=== PATIENT | female | born 1950 | race Caucasian/White ===

== ENCOUNTER 2017-04-13 11:15 | Outpatient (CLI) | payer MEDICARE, MEDICAID ==
--- OUTSIDE RECORDS SUMMARY | 2017-04-13 11:18 | XMS | Clinical Summary ---
:1950 Author Organization [facility] Address [address] [place] [address] Phone Care Team Providers Name Role Phone , Primary Care Provider Unavailable Allergies Not on File Current Medications Not on file Active Problems Not on file Social History Tobacco Use Types Packs/Day Years Used Date Never Assessed Sex Assigned at Date Recorded Not on file Last Filed Vital Signs Not on file Plan of Treatment Not on file Results Not on filefrom Last 3 Months
--- NOTE | 2017-04-13 14:38 | ULT ---
RIGHT BREAST ULTRASOUND BILATERAL DIAGNOSTIC MAMMOGRAM: Date: 04/13/17 COMPARISON: 12/24/14. HISTORY: Palpable mass in the right breast. Patient reports trauma to the right breast after being kicked by a mule. Patient had multiple hematomas drained in the past. FINDINGS: Bilateral MLO, ML, and CC views of the breast, as well as spot magnification views of the right leatha st in the MLO and CC projections were performed. Scattered fibroglandular breast tissue is seen. Umang ign-appearing calcifications are seen in both breasts. Beneath the palpable marker in the right leatha st there are multiple well circumscribed lucent lesions which represent oil cysts. No suspicious mas s is seen beneath the marker siting the area of palpable abnormality. Interpretation of this mammogram was performed with the assistance of computer-aided detection. Targeted ultrasound of the right breast shows a well circumscribed hypoechoic to anechoic lesion joaquim suring 4.0 mm in size without shadowing. This demonstrates increased through-transmission and likely corresponds to the larger of the oil cysts. No suspicious shadowing is seen in the right breast. IMPRESSION: BIRADS Category 2 - benign findings. Annual screening mammography is recommended. POS: [facility]
== END 2017-04-13 11:16 | disposition home or self-care (01) ==
LOC: MAMMO 11:15
PROVIDERS: ATTEND Family Medicine
DX: N63 Unspecified lump in breast (principal)
CPT/HCPCS: 76642; G0204; 77066

== ENCOUNTER 2018-04-12 09:05 | Day surgery (SDC) | payer MEDICARE, MEDICAID ==
[2018-04-11 11:26] VITALS: BMI 18.3
--- NOTE | 2018-04-12 01:16 | HP ---
DATE OF ADMISSION: 04/12/2018 SHORT-STAY HISTORY AND PHYSICAL HISTORY OF PRESENT ILLNESS: This is a 67-year-old female with chronic diarrhea. The patie nt has diarrhea off and on over the last several years. The stools are watery and she has diarrhea b oth during the day and nighttime. She has no fever, no night sweats. Her weight has been down by 29 pounds. She was hospitalized in [place] in 2012 because of above reason and had a colonoscopy th at was negative. There is mention of colonic ulceration and colitis. She . Her symptoms did n ot resolve. The patient comes for a colonoscopy because of chronic diarrhea and weight loss. ALLERGIES: HMG-COA REDUCTASE INHIBITORS. SOCIAL HISTORY: The patient is a smoker. No history of alcohol intake. MEDICAL ILLNESSES: 1. Chronic diarrhea. 2. Hypertension. 3. Depression. 4. Chronic anxiety. 5. Coronary artery disease, status post stent placement. 6. Hyperlipidemia. 7. Colon polyp. 8. IBS. 9. Chronic acid reflux. 10. Peripheral vascular disease. 11. Chronic lung disease. 12. Hysterectomy. 13. Cholecystectomy. 14. Rotator cuff repair. PHYSICAL EXAMINATION: VITAL SIGNS: Her weight is 101 pounds. Her pulse is 74, blood pressure 110/76. HEENT: Conjunctivae clear. CARDIOVASCULAR SYSTEM: First and second heart sounds normal. LUNGS: Clear to auscultation. ABDOMEN: Soft to palpate. No organomegaly. No tenderness. No masses. ADMITTING DIAGNOSES: Chronic diarrhea, weight loss. PLAN: Colonoscopy.
--- NOTE | 2018-04-12 11:16 | OP ---
DATE OF PROCEDURE: 04/12/2018 OPERATIVE PROCEDURE: Colonoscopy with biopsy. PREOPERATIVE DIAGNOSES: A 67-year-old female with diarrhea, history of weight loss. The p atient had a colonoscopy done out of town and was told to have colitis on the right colon. The patie nt's diarrhea persists. She underwent colonoscopy. POSTOPERATIVE DIAGNOSES: 1. Occasional sigmoid diverticular disease. 2. No colitis seen as the mucosa appears normal. PROCEDURE IN DETAIL: The patient was placed on her left lateral position and was given sedation by A nesthesia Department. A rectal exam was done before the scope was advanced into the rectum. No lesi ons were felt on rectal exam. A Pentax video colonoscope was introduced into the rectum and advanced all the way into the cecum. Although the patient has history of colitis, in the endoscopy, the muco sa appeared normal. There was no colitis seen. The appendical opening, ileocecal valve, cecum, well visualized. No pathology seen. The ascending colon, mucosa appears normal with normal vascular pat tern. The hepatic flexure, transverse colon, splenic flexure, descending colon, no pathology seen. The sigmoid colon showed mild diverticular disease. Random biopsies obtained of the ascending colon, transverse colon, sigmoid colon, to rule out microscopic colitis. The rectum showed no pathology. DISCHARGE PLANNING: This is a 67-year-old female with chronic diarrhea, weight loss, etc. She had a colonoscopy, which revealed no colitis. Random biopsies obtained of the ascending colon, transverse colon, and sigmoid colon, to rule out microscopic colitis. DISCHARGE RECOMMENDATIONS: 1. The patient was advised to call me if she developed abdominal pain, hematochezia. 2. May try Metamucil once a day. 3. Await colonic biopsies before making further recommendations.
[2018-04-12] MEDS ORDERED: PROPOFOL 200 MG/20 ML VIAL ONE (15:09)
== END 2018-04-12 11:45 | disposition home or self-care (01) ==
LOC: SDC 09:05
PROVIDERS: ATTEND Internal Medicine Gastroenterology
PROC: 0DBK8ZX Excision of Ascending Colon, Via Natural or Artificial Opening Endoscopic, Diagnostic (ICD-10-PCS; principal; 2018-04-12)
PROC: 0DBL8ZX Excision of Transverse Colon, Via Natural or Artificial Opening Endoscopic, Diagnostic (ICD-10-PCS; 2018-04-12)
PROC: 0DBN8ZX Excision of Sigmoid Colon, Via Natural or Artificial Opening Endoscopic, Diagnostic (ICD-10-PCS; 2018-04-12)
DX: K57.30 Diverticulosis of large intestine without perforation or abscess without bleeding (principal); K58.0 Irritable bowel syndrome with diarrhea; F17.210 Nicotine dependence, cigarettes, uncomplicated; I10 Essential (primary) hypertension; F32.9 Major depressive disorder, single episode, unspecified; F41.9 Anxiety disorder, unspecified; I25.10 Atherosclerotic heart disease of native coronary artery without angina pectoris; E78.5 Hyperlipidemia, unspecified; Z79.82 Long term (current) use of aspirin; Z79.02 Long term (current) use of antithrombotics/antiplatelets; Z79.899 Other long term (current) drug therapy; Z88.8 Allergy status to other drugs, medicaments and biological substances; Z95.5 Presence of coronary angioplasty implant and graft
CPT/HCPCS: 88305; J2704

== ENCOUNTER 2018-05-06 06:10 | Day surgery (SDC) | payer MEDICARE, MEDICAID ==
--- NOTE | 2018-05-05 01:35 | HP ---
SHORT STAY HISTORY AND PHYSICAL DATE OF ADMISSION: 05/06/2018 HISTORY OF PRESENT ILLNESS: This is a 67-year-old female with a history of chronic diarrhea, weight loss. The patient has had the symptoms for a while. The patient had EGD and colonoscopy which were negative for any pathology. The patient comes in with abdominal pain and dyspepsia. for an EGD. ALLERGIES: STATINS. MEDICAL ILLNESSES: 1. Chronic diarrhea. 2. Weight loss. 3. Depression. 4. IBS. 5. Chronic obstructive pulmonary disease. 6. Peripheral vascular disease. 7. Depression. 8. Anxiety. PHYSICAL EXAMINATION: VITAL SIGNS: Pulse is 70, blood pressure 110/70. HEENT: Conjunctivae clear. CARDIOVASCULAR SYSTEM: First and second heart sounds normal. LUNGS: Clear to auscultation. ABDOMEN: Soft to palpate. No organomegaly. Abdomen is tender over the epigastric area and right upper quadrant. There is no rebound or guarding. CLINICAL IMPRESSION: Abdominal pain and weight loss. [facility]AN[facility]
[2018-05-05 11:26] VITALS: BMI 19.1
--- NOTE | 2018-05-06 10:58 | OP ---
DATE OF PROCEDURE: 05/06/2018. SURGEON: Marguerite Maritnez M.D. OPERATIVE PROCEDURE: Esophagogastroduodenoscopy with biopsy. PREOPERATIVE DIAGNOSES: Abdominal pain, chronic diarrhea with negative colonoscopy, negative abdominal CAT scan. The patient is undergoing esophagogastroduodenoscopy. POSTOPERATIVE DIAGNOSES: 1. Normal esophageal mucosa. 2. A couple of tiny small polyps in the gastric body, not biopsied. 3. Normal duodenum. 4. Random biopsy of the descending duodenum to rule out celiac disease. PROCEDURE IN DETAIL: The patient was placed on her left lateral position and was given sedation by Anesthesia Department. A Pentax video gastroscope under direct vision was passed down the oropharynx, past the GE junction, into the stomach and subsequently into the descending duodenum. The esophageal mucosa appeared normal. The GE junction, no pathology seen. Retroflexion failed to show any lesions in the fundus and cardia. The gastric body shows couple of tiny polyps. They were not biopsied. The gastric antrum, no pathology seen. The incisural angularis, no pathology seen. The duodenal bulb, descending duodenum, no pathology seen. Due to the chronic diarrhea, negative colonoscopy , random biopsies obtained from the descending duodenum to rule out celiac disease. The stomach was decompressed and the scope removed. DISCHARGE PLANNING: This is a 67-year-old female with abdominal pain , weight loss, chronic diarrhea. The patient has a negative colonoscopy including biopsies for microscopic colitis. An abdominal CAT scan was basically negative. The patient underwent esophagogastroduodenoscopy with biopsy. DISCHARGE RECOMMENDATIONS: 1. Resume meds as before. 2. Await the biopsy report before making further recommendations. [facility]
[2018-05-06] MEDS ORDERED: PROPOFOL 200 MG/20 ML VIAL ONE (14:58)
[2018-05-06] MEDS ORDERED: Lidocaine 1% PF 5 ML VIAL ONE (14:58)
== END 2018-05-06 09:04 | disposition home or self-care (01) ==
LOC: SDC 06:10
PROVIDERS: ATTEND Internal Medicine Gastroenterology
PROC: 0DB98ZX Excision of Duodenum, Via Natural or Artificial Opening Endoscopic, Diagnostic (ICD-10-PCS; principal; 2018-05-06)
DX: R10.13 Epigastric pain (principal); R63.4 Abnormal weight loss; K31.7 Polyp of stomach and duodenum; J44.9 Chronic obstructive pulmonary disease, unspecified; I73.9 Peripheral vascular disease, unspecified; K58.0 Irritable bowel syndrome with diarrhea; F32.9 Major depressive disorder, single episode, unspecified; F41.9 Anxiety disorder, unspecified; Z68.1 Body mass index [BMI] 19.9 or less, adult; Z79.82 Long term (current) use of aspirin; Z79.899 Other long term (current) drug therapy; Z88.8 Allergy status to other drugs, medicaments and biological substances; Z98.890 Other specified postprocedural states
CPT/HCPCS: 88305; J2001; J2704

== ENCOUNTER 2018-06-16 13:45 | Outpatient (CLI) | payer MEDICARE, MEDICAID | END 2018-06-16 13:46 | disposition home or self-care (01) | LOC: BICMAMMO 13:45 | PROVIDERS: ATTEND Family Medicine | DX: Z12.31 Encounter for screening mammogram for malignant neoplasm of breast (principal); Z80.3 Family history of malignant neoplasm of breast | CPT/HCPCS: 77063; 77067 ==

== ENCOUNTER 2018-10-25 12:38 | Outpatient (CLI) | payer MEDICARE, MEDICAID ==
--- NOTE | 2018-10-25 15:24 | MRI ---
MRI CERVICAL SPINE WITHOUT CONTRAST: Date: 10/25/18 HISTORY: Cervical spondylosis. Myelopathy. COMPARISON: None. FINDINGS: Appropriate T1 marrow signal intensity of the cervical vertebra. Cervical spine and vertebral body he ight is maintained. There is no fracture. There is no significant STIR hyperintensity to suggest vert ebral body edema or ligamentous injury. Visualized brain parenchyma, cervicomedullary junction, cervical cord, and the upper thoracic cord hickey ve a normal size and signal intensity. 1.5 mm of anterolisthesis of C3 upon C4, 2.5 mm anterolisthesis of C4 upon C5, 2.2 mm retrolisthesis of C5 upon C6, 2.98 mm anterolisthesis of C7 upon T1. There is intrinsic T2 hyperintensity in the expected region of the left and right thyroid lobe, incom pletely evaluated. C2-C3: No significant central canal stenosis or foraminal narrowing. C3-C4: Broad based disc osteophyte complex. No significant central canal stenosis or neural foramina l narrowing. C4-C5: Broad based disc osteophyte complex without significant central canal stenosis or foraminal n arrowing. C5-C6: Broad based disc osteophyte complex that abuts the thecal sac. Mild central canal stenosis. T here are hypertrophic changes in bilateral uncovertebral joints which result in moderate to severe ri ght and moderate left foraminal narrowing. C6-C7: Broad based disc osteophyte complex abuts the thecal sac. No significant central canal stenos is. Mild to moderate right foraminal narrowing due to uncovertebral hypertrophy. Left neural foramen is patent. C7-T1: No significant central canal stenosis or neural foraminal narrowing. IMPRESSION: 1. Degenerative changes in the cervical spine as above. 2. Incompletely evaluated lesion in the left and right thyroid lobe. Nonemergent thyroid ultrasound is recommended. CODE T. POS: [facility]
--- NOTE | 2018-10-25 15:45 | MRI ---
MRI OF THE LUMBAR SPINE WITHOUT CONTRAST: 10/25/18 HISTORY: Spondylolysis, without myelopathy. COMPARISON: None. FINDINGS: Appropriate T1 marrow signal intensity of the lumbar vertebra. Lumbar spine vertebral body height is maintained. There is no fracture. No significant STIR hyperintensity to suggest vertebral body edema or ligamentous injury. 2.7 mm of anterolisthesis of L4 upon L5. Appropriate signal intensity visualized in the paraspinal muscles and visualized solid organs. Conus medullaris terminates at the upper aspect of L1. T11-T12: Minimal left paracentral disc bulge. No significant central canal stenosis. Neural foramina are patent. T12-L1: No significant central canal stenosis. Foramina are patent. L1-L2: Generalized disc bulge without significant central canal stenosis. Neural foramina are patent. L2-L3: Generalized disc bulge with small left and right paracentral disc protrusions along with minim al inferior and superior extrusions. There is bilateral facet hypertrophy with fluid in both facet mahesh ints, right slightly greater than left. Overall, there is mild central canal stenosis. Right neural f oramen is moderate to severely narrowed. Left neural foramen is patent. L3-L4: There is desiccation with mild loss of disc space height. Generalized disc bulge, ligamentum f lavum thickening and facet hypertrophy result in mild to moderate central canal stenosis. There is na rrowing of both subarticular zones with disc material encroaching upon but not obscuring either trave rsing L4 nerve root. Moderate right and mild left foraminal narrowing. L4-L5: Desiccation with moderate loss of disc height. Broad based disc bulge, ligamentum flavum thick ening and facet hypertrophy result in moderate central canal stenosis. There is significant narrowing of the left subarticular zone with partial obscuration of the traversing left L5 nerve root. There i s also narrowing with partial obscuration of the traversing right L5 nerve root. Mild right and moder ate left foraminal narrowing. L5-S1: Adequate disc hydration. No significant central canal stenosis. Neural foramina are patent. IMPRESSION: 1. Degenerative changes of the lumbar spine as above. There is multilevel significant neural for aminal narrowing as detailed above. 2. Significant narrowing of both subarticular zones, left greater than right at L4-L5. POS: [facility]
== END 2018-10-25 12:39 | disposition home or self-care (01) ==
LOC: TBSIIMAG 12:38
PROVIDERS: ATTEND Neurological Surgery
DX: M47.816 Spondylosis without myelopathy or radiculopathy, lumbar region (principal); M47.12 Other spondylosis with myelopathy, cervical region
CPT/HCPCS: 72141; 72148

== ENCOUNTER 2019-01-06 10:45 | Outpatient (CLI) | payer MEDICARE, MEDICAID ==
--- NOTE | 2019-01-06 13:01 | MRI ---
MRI THORACIC SPINE NONCONTRAST: DATE: 01/06/2019. HISTORY: A 68-year-old female with M47.814 thoracic spondylosis and M54.14 thoracic radiculopathy. FINDINGS: There are high-grade bilateral facet degenerative changes at C7-T1 causing a grade I anterolisthesis of C7 on T1, causing moderate central spinal canal stenosis and significant bilateral neural foramina l stenosis. There is no significant central spinal canal stenosis in the thoracic spinal canal proper. There is no intramedullary signal abnormality. No syrinx. Multilevel degenerative disk disease, mostly mild, with disk space narrowing and multilevel small disk protrusions or disk-osteophyte complexes encroac vict[place] upon the anterior aspect of the spinal canal. The most prominent one is a small right paracentr al such lesion at T7-8 which abuts the right ventral surface of the spinal cord. No riena cord compr ession. No severe neural foraminal stenosis visualized at any level. Mild to moderate left neural f oraminal stenosis at T10-11. Vertebral body heights are maintained. Minimal end plate degenerative signal abnormalities at mid and lower levels. No major bone marrow signal abnormality. Perivertebra l spaces are unremarkable. IMPRESSION: 1. High-grade facet osteoarthrosis at cervicothoracic junction causing grade I spondylolisthesis and high-grade bilateral neural foraminal stenosis, at C7-T1. 2. Thoracic spondylosis, mild-moderate. 3. Small right paracentral focal disk herniation or disk-osteophyte complex at T7-8. 4. No compression fracture or significant central spinal canal stenosis in the thoracic spine. POS: [facility]
== END 2019-01-06 10:46 | disposition home or self-care (01) ==
LOC: TBSIIMAG 10:45
PROVIDERS: ATTEND Anesthesiology Pain Medicine
DX: M47.24 Other spondylosis with radiculopathy, thoracic region (principal); M48.03 Spinal stenosis, cervicothoracic region; M43.13 Spondylolisthesis, cervicothoracic region; M47.814 Spondylosis without myelopathy or radiculopathy, thoracic region
CPT/HCPCS: 72146

== ENCOUNTER 2019-09-22 13:13 | Outpatient (CLI) | payer MEDICARE, MEDICAID ==
--- NOTE | 2019-09-22 14:29 | MMO ---
Bilateral MAMMO Bilat Screen [facility]. CLINICAL HISTORY: Patient is 69 years old and is seen for screening. The patient has no family history of breast cancer. The patient has no personal history of cancer. The patient has a history of left Excisional Biopsy at age 22 - benign. VIEWS: The views performed were: bilateral craniocaudal with tomosynthesis and bilateral mediolateral oblique with tomosynthesis. FILMS COMPARED: The present examination has been compared to prior imaging studies performed at [facility] on 11/21/2009 and 12/24/2014, at [facility] on 06/16/2018, and at [facility] on 04/13/2017. This study has been interpreted with the assistance of computer-aided detection. MAMMOGRAM FINDINGS: There are scattered fibroglandular densities. There are stable benign appearing calcifications seen in both breasts. There are no suspicious masses, suspicious calcifications, or new areas of architectural distortion. IMPRESSION: THERE IS NO MAMMOGRAPHIC EVIDENCE OF MALIGNANCY. A ROUTINE FOLLOW-UP MAMMOGRAM IN 1 YEAR IS RECOMMENDED. THE RESULTS OF THIS EXAM WERE SENT TO THE PATIENT. ACR BI-RADS Category 2 - Benign finding MAMMOGRAPHY NOTE: 1. A negative mammogram report should not delay a biopsy if a dominant of clinically suspicious mass is present. 2. Approximately 10% to 15% of breast cancers are not detected by mammography. 3. Adenosis and dense breasts may obscure an underlying neoplasm. Reported by: SUKHWINDER MORTENSEN MD Electonically Signed: [id number]
== END 2019-09-22 13:14 | disposition home or self-care (01) ==
LOC: BICMAMMO 13:13
PROVIDERS: ATTEND Family Medicine
DX: Z12.31 Encounter for screening mammogram for malignant neoplasm of breast (principal); Z91.89 Other specified personal risk factors, not elsewhere classified
CPT/HCPCS: 77063; 77067

== ENCOUNTER 2019-12-28 18:22 | Emergency (ER) | payer MEDICARE, MEDICAID ==
[2019-12-28 19:01] LABS: #Basophils 0.1 thou/uL (0.0-0.2); #Eosinphils 0.4 thou/uL (0.0-0.7); #Lymphocytes 3.7 thou/uL (1.20-3.40); #Monocytes 0.6 thou/uL (0.11-0.59); #Neutrophils 3.4 thou/uL (1.40-6.50); %Basophils 1.3 % (0.0-1.0); %Eosinophils 5.1 % (0.0-10.0); %Lymphocytes 44.8 % (21.0-51.0); %Neutrophils 41.8 % (42.0-75.0); Hemoglobin 13.9 g/dL (12.0-16.0); Mean Corpuscular HGB CONC 32.1 g/dL (32.0-36.0); Mean Corpuscular Volume 93.3 fL (78.0-98.0); Mean Platelet Volume 8.2 fL (7.4-10.4); Platelet Count 290 thou/uL (130-400); RBC Distribution Width 12.8 % (11.5-14.5); Red Blood Cell (RBC) Count 4.65 mill/uL (4.20-5.40); White Blood Cell (WBC) Count 8.2 thou/uL (4.8-10.8)
[2019-12-28 19:15] LABS: Bacteria/HPF 4+ HPF (None Seen); Bilirubin Negative (Negative); Blood, Urine 2+ (Negative); Clarity Turbid (Clear); Glucose, Urine (Dipstick) Normal (Negative); Leukocyte 500 Leu/uL (Negative); Nitrite 2+ (Negative); Protein, Urine (Dipstick) 30 mg/dL (Neg-Trace); RBC/HPF Greater than 50 HPF (0-3); Squamous Epithelial 0-3 HPF (0-3); Urobilinogen Normal mg/dL (Less than 2); WBC/HPF Greater than 50 HPF (0-3)
[2019-12-28 19:19] LABS: ALT (SGPT) Less than 7 U/L (8-55); AST (SGOT) 15 U/L (5-34); Albumin 4.1 g/dL (3.4-4.8); Alkaline Phosphatase 90 U/L (40-110); Anion Gap 12 mmol/L (10-20); BUN (Urea Nitrogen) 10 mg/dL (9.8-20.1); Bilirubin, Total 0.2 mg/dL (0.2-1.2); Calc. Creatinine Clearance 0 mL/min (70-130); Calcium 9.3 mg/dL (7.8-10.44); Carbon Dioxide 29 mmol/L (23-31); Chloride 101 mmol/L (98-107); Estimated GFR-MDRD 71; Globulin 2.9 g/dL (2.4-3.5); Glucose 115 mg/dL (83-110); Potassium 3.9 mmol/L (3.5-5.1); Sodium 138 mmol/L (136-145)
[2019-12-28] MEDS ORDERED: cefTRIAXone\\ROCEPHIN 1 GM VIAL ONE (21:03)
[2019-12-28] MEDS ORDERED: Sodium Chloride 0.9% 100 ML ONE (21:03)
[2019-12-28] MEDS ORDERED: Morphine 4 MG/ML VIAL ONE ×2 (21:03→22:24)
[2019-12-28] MEDS ORDERED: Ondansetron PF 4 MG/2 ML Vial ONE (21:03)
== END 2019-12-28 22:22 | disposition home or self-care (01) ==
LOC: ERS 18:22
DX: N39.0 Urinary tract infection, site not specified (principal); I73.9 Peripheral vascular disease, unspecified; G62.9 Polyneuropathy, unspecified; M19.90 Unspecified osteoarthritis, unspecified site; J44.9 Chronic obstructive pulmonary disease, unspecified; E78.5 Hyperlipidemia, unspecified; E78.00 Pure hypercholesterolemia, unspecified; F17.210 Nicotine dependence, cigarettes, uncomplicated
CPT/HCPCS: 36415; 80053; 81003; 81015; 85025; 87077; 87086; 87186; 96365; 96375; 96376; J0696; J2270; J2405; J3490

== ENCOUNTER 2021-04-27 15:07 | Observation (INO) | payer MEDICARE, MEDICAID ==
[2021-04-27] MEDS ORDERED: Ondansetron PF 4 MG/2 ML Vial IVP PRN (19:29)
[2021-04-27] MEDS ORDERED: Acetaminophen 325 MG TAB PO PRN (19:29)
[2021-04-27] MEDS ORDERED: Senokot S 8.6-50 MG TAB PO PRN (19:29)
[2021-04-27] MEDS ORDERED: Melatonin 3 MG TAB PO PRN (19:42)
[2021-04-27] MEDS ORDERED: hydrALAZINE 20 MG/ML VIAL SLOW IVP PRN (19:42)
[2021-04-27] MEDS: Sodium Chloride 0.9% 1,000 ML IV SCH (21:50)
[2021-04-27] MEDS: Famotidine/PF 20 mg/2ml Vial SLOW IVP SCH (21:51)
[2021-04-27] MEDS ORDERED: Zolpidem Tartrate 5 MG TAB PO PRN (23:03)
[2021-04-28] MEDS: oxyCODONE 5 MG TAB PO SCH ×6 (00:48→21:50)
[2021-04-28 07:27] LABS: INR-International Normal Ratio 0.9; Prothrombin Time 12.3 sec (12.0-14.7)
[2021-04-28 07:40] LABS: #Eosinphils 0.2 thou/uL (0.0-0.7); #Lymphocytes 2.2 thou/uL (1.20-3.40); #Monocytes 0.4 thou/uL (0.11-0.59); #Neutrophils 3.4 thou/uL (1.40-6.50); %Basophils 0.3 % (0.0-1.0); %Eosinophils 3.6 % (0.0-10.0); %Lymphocytes 35.4 % (21.0-51.0); %Monocytes 6.1 % (0.0-10.0); %Neutrophils 54.6 % (42.0-75.0); Hemoglobin 11.7 g/dL (12.0-16.0); Mean Corpuscular Hemoglobin 30.8 pg (27.0-31.0); Mean Corpuscular Volume 93.2 fL (78.0-98.0); Platelet Count 149 thou/uL (130-400); RBC Distribution Width 15.8 % (11.5-14.5); Red Blood Cell (RBC) Count 3.79 mill/uL (4.20-5.40); White Blood Cell (WBC) Count 6.2 thou/uL (4.8-10.8)
[2021-04-28 07:43] LABS: Anion Gap 10 mmol/L (10-20); BUN (Urea Nitrogen) 11 mg/dL (9.8-20.1); Calc. Creatinine Clearance 24 mL/min (70-130); Carbon Dioxide 28 mmol/L (23-31); Chloride 100 mmol/L (98-107); Potassium 3.9 mmol/L (3.5-5.1); Sodium 134 mmol/L (136-145)
[2021-04-28 07:44] LABS: Calcium 8.1 mg/dL (7.8-10.44); Glucose 95 mg/dL (83-110)
[2021-04-28] MEDS ORDERED: OXYCODONE MYRISTATE 36 MG PO SCH (09:00)
[2021-04-28 11:05] VITALS: BMI 14.9
[2021-04-28] MEDS ORDERED: Iopamidol 300 61% 50 ML VIAL FS ONE (11:09)
[2021-04-28] MEDS ORDERED: Fentanyl 100 MCG/2 ML VIAL ONE (11:42)
[2021-04-28 16:21] LABS: Bacteria/HPF 4+ HPF (None Seen); Bilirubin Negative (Negative); Blood, Urine 2+ (Negative); Clarity Turbid (Clear); Glucose, Urine (Dipstick) Normal (Negative); Ketone, Urine Negative (Negative); Leukocyte 500 Leu/uL (Negative); Nitrite Negative (Negative); Protein, Urine (Dipstick) 70 mg/dL (Neg-Trace); RBC/HPF 21-50 HPF (0-3); Specific Gravity, Urine 1.009 (1.002-1.036); Squamous Epithelial 0-3 HPF (0-3); Urobilinogen Normal mg/dL (Less than 2); WBC/HPF Greater than 50 HPF (0-3)
[2021-04-28] MEDS: Sodium Chloride 0.9% 1,000 ML IV SCH (17:00)
[2021-04-28] MEDS: Famotidine/PF 20 mg/2ml Vial SLOW IVP SCH (21:50)
[2021-04-29] MEDS: oxyCODONE 5 MG TAB PO SCH ×4 (03:33→13:09)
[2021-04-29] MEDS: Sodium Chloride 0.9% 1,000 ML IV SCH (12:22)
[2021-04-29 12:31] VITALS: BP 136/69; TEMP 98.2
== END 2021-04-29 13:24 | disposition home or self-care (01) ==
LOC: ONC 15:07
PROVIDERS: ADMIT Internal Medicine; ATTEND Internal Medicine
PROC: 0TJ53ZZ Inspection of Kidney, Percutaneous Approach (ICD-10-PCS; principal; 2021-04-27)
DX: T83.022A Displacement of nephrostomy catheter, initial encounter (principal); C67.9 Malignant neoplasm of bladder, unspecified; C78.7 Secondary malignant neoplasm of liver and intrahepatic bile duct; N13.5 Crossing vessel and stricture of ureter without hydronephrosis; I10 Essential (primary) hypertension; J44.9 Chronic obstructive pulmonary disease, unspecified; I73.9 Peripheral vascular disease, unspecified; G62.9 Polyneuropathy, unspecified; M41.9 Scoliosis, unspecified; M19.90 Unspecified osteoarthritis, unspecified site; I25.10 Atherosclerotic heart disease of native coronary artery without angina pectoris; E78.5 Hyperlipidemia, unspecified; E78.00 Pure hypercholesterolemia, unspecified; F17.210 Nicotine dependence, cigarettes, uncomplicated; Z79.891 Long term (current) use of opiate analgesic; Z79.899 Other long term (current) drug therapy; Z88.8 Allergy status to other drugs, medicaments and biological substances; Z95.5 Presence of coronary angioplasty implant and graft; Y73.1 Therapeutic (nonsurgical) and rehabilitative gastroenterology and urology devices associated with adverse incidents
CPT/HCPCS: 50431; 50436; 75984; 76775; 80048; 81001; 85025; 85610; 87086; 96374; 96376; G0378 ×3; 36415; J3010; J7050; Q9967; S0028